=== PATIENT | female | born 1960 | race Caucasian/White ===

== ENCOUNTER 2017-12-26 08:48 | Day surgery (SDC) | payer OTHER | END 2017-12-26 11:30 | disposition home or self-care (01) | LOC: AMB-ENDOS 08:48 | DX: D01.3 Carcinoma in situ of anus and anal canal (principal); K64.8 Other hemorrhoids ==

== ENCOUNTER 2018-01-18 07:25 | Day surgery (SDC) | payer OTHER ==
[~2018-01-18 07:25] MED LIST: PLAVIX75 MG PO; SYNTHROID75 MCG PO; ULTRACET PO
[2018-01-18] MEDS ORDERED: ULTRACET PO (10:04)
[2018-01-18] MEDS ORDERED: MUPIROCIN15 GM TOP (10:04)
== END 2018-01-18 13:15 | disposition home or self-care (01) ==
LOC: CIR.AMB 07:25
DX: D01.3 Carcinoma in situ of anus and anal canal (principal); A63.0 Anogenital (venereal) warts; K62.6 Ulcer of anus and rectum

== ENCOUNTER 2018-02-05 16:52 | Emergency (ER) | payer OTHER ==
[~2018-02-05] VITALS: Ht 157.5 cm; Wt 66.2 kg
[~2018-02-05 16:52] MED LIST changes: +MUPIROCIN15 GM TOP
== END 2018-02-05 20:53 | disposition home or self-care (01) ==
LOC: ER 16:52
DX: T81.4XXS Infection following a procedure, sequela (principal); Y83.8 Other surgical procedures as the cause of abnormal reaction of the patient, or of later complication, without mention of misadventure at the time of the procedure